=== PATIENT | female | born 1985 | race Caucasian/White ===

== ENCOUNTER 2020-02-25 12:49 | Emergency (ER) | payer BC ==
[~2020-02-25] VITALS: Ht 167.6 cm; Wt 87.4 kg
--- NOTE | 2020-02-25 13:15 | PHYS DOC ---
Past History Past Medical History: Fibromyalgia, Other Additional Past Medical Histor: HPV Past Surgical History: Cholecystectomy Alcohol Use: None General Adult EDM: Chief Complaint: VAGINAL BLEEDING HPI: HPI: Patient is a 4-year-old female who presents with vaginal bleeding that started today around noon. Patient states that her last menstrual period was 11/29 and she thinks she is about 12 weeks . Patient is G3, P2. Patient denies p ain and reports that she had some small spotting and small clots earlier today. Patient denies trauma. Patient has not seen OB yet has her first apartment appointment scheduled for tomorrow. Patient denies nausea, vomiting, diarrhea. Review of Systems: Review of Systems: Constitutional: Denies fever or chills Eyes: Denies change in visual acuity HENT: Denies nasal congestion or sore throat Respiratory: Denies cough or shortness of breath Cardiovascular: Denies chest pain or edema GI: Denies abdominal pain, nausea, vomiting, bloody stools or diarrhea : Denies dysuria Musculoskeletal: Denies back pain or joint pain Integument: Denies rash Neurologic: Denies headache, focal weakness or sensory changes Endocrine: Denies polyuria or polydipsia Lymphatic: Denies swollen glands Psychiatric: Denies depression or anxiety Allergies: Allergies: Allergies Coded Allergies Type Severity Reaction Last Updated Verified No Known Drug Allergies 02/25/20 No Physical Exam: PE: Constitutional: Well developed, well nourished, no acute distress, non-toxic appearance. [] HENT: Normocephalic, atraumatic, bilateral external ears normal, oropharynx moist, no oral exudates, nose normal. [] Eyes: PERRLA, EOMI, conjunctiva normal, no discharge. [] Neck: Normal range of motion, no tenderness, supple, no stridor. [] Cardiovascular:Heart rate regular rhythm, no murmur [] Lungs & Thorax: Bilateral breath sounds clear to auscultation [] Abdomen: Bowel sounds normal, soft, no tenderness, no masses, no pulsatile masses. [] Skin: Warm, dry, no erythema, no rash. [] Back: No tenderness, no CVA tenderness. [] Extremities: No tenderness, no cyanosis, no clubbing, ROM intact, no edema. [] Neurologic: Alert and oriented X 3, normal motor function, normal sensory function, no focal deficits noted. [] Psychologic: Affect normal, judgement normal, mood normal. [] Current Patient Data: Vital Signs: Vital Signs Date Time Temp Pulse Resp B/P (MAP) Pulse Ox O2 Delivery O2 Flow Rate FiO2 02/25/20 12:57 98.0 106 16 133/70 (91) 98 Room Air EKG: EKG: [] Radiology/Procedures: Radiology/Procedures: [] Heart Score: Risk Factors: Risk Factors: DM, Current or recent (<one month) smoker, HTN, HLP, family history of CAD, obesity. Risk Scores: Score 0 - 3: 2.5% MACE over next 6 weeks - Discharge Home Score 4 - 6: 20.3% MACE over next 6 weeks - Admit for Clinical Observation Score 7 - 10: 72.7% MACE over next 6 weeks - Early Invasive Strategies Course & Med Decision Making: Course & Med Decision Making Pertinent Labs and Imaging studies reviewed. (See chart for details) 34 year old female seen for vaginal spotting that started today without any cramping or pain. Will order beta HCG serum for baseline and US to check viability. Your ultrasound showed normal viable first trimester OB ultrasound. The estimated gestational age was 12 weeks and 2 days. With a estimated date of delivery of September 06, 2020. Labs within normal limits. Will have patient follow-up with PROCESSING SPECIALIST tomorrow for further assessment and evaluation. Patient denies abdominal pain. Patient is hemodynamically stable and able to ambulate on discharge. Dragon Disclaimer: Dragon Disclaimer: This electronic medical record was generated, in whole or in part, using a voice recognition dictation system. Departure Departure: Impression: Primary Impression: Vaginal bleeding before 22 weeks gestation Disposition: 01 DC HOME SELF CARE/HOMELESS Condition: GOOD Referrals: PCP,NO (PCP) Patient Instructions: Vaginal Bleeding During , [id number] Additional Instructions: You were in the emergency room today for vaginal bleeding. Your ultrasound showed normal viable first trimester OB ultrasound. The estimated gestational age was 12 weeks and 2 days. With a estimated date of delivery of September 06, 2020. Please follow-up with your PROCESSING SPECIALIST tomorrow for further assessment and evaluation. If you have worsening symptoms or concerns please return to the emergency room. EMERGENCY DEPARTMENT GENERAL DISCHARGE INSTRUCTIONS Thank you for coming to [facility] (ED) today and trusting us with you care. We trust that you had a positivie experience in our Emergency Department. If you wish to speak to the department management, you may call the director at [phone]. YOUR FOLLOW UP INSTRUCTIONS ARE FOLLOWS: 1. Do you have a private Doctor? If you do not have a private doctor, please ask for a resource list of physicians or clinics that may be able to assist you with follow up care. 2. The Emergency Physician has interpreted your x-rays. The X-Ray specialist will also review them. If there is a change in the findings, you will be notified in 48 hours when at all possible. 3. A lab test or culture has been done, your results will be reviewed and you will be notified if you need a change in treatment. ADDITIONAL INSTRUCTIONS AND INFORMATION: 1. Your care today has been supervised by a physician who is specially trained in emergency care. Many problems require more than one evaluation for a complete diagnosis and treatment. We recommend that you schedule your follow up appointment as recommended to ensure complete treatment of you illness or injury. If you are unable to obtain follow up care and continue to have a problem, or if your condition worsens, we recommend that you return to the ED. 2. We are not able to safely determine your condition over the phone nor are we able to give sound medical advice over the phone. For these safety reasons, if you call for medical advice we will ask you to come to the ED for further evaluation. 3. If you have any questions regarding these discharge instructions please call the ED at [phone]. SAFETY INFORMATION: In the interest of safety, wellness, and injury prevention; we encourage you to wear your sealbelt, if you smoke; quite smoking, and we encourage family to use a protective helmet for bicycling and other sporting events that present an increased risk for head injury. IF YOUR SYMPTOMS WORSEN OR NEW SYMPTOMS DEVELOP, OR YOU HAVE CONCERNS ABOUT YOUR CONDITION; OR IF YOUR CONDITION WORSENS WHILE YOU ARE WAITING FOR YOUR FOLLOW UP APPOINTMENT; EITHER CONTACT YOUR PRIMARY CARE DOCTOR, THE PHYSICIAN WHOSE NAME AND NUMBER YOU WERE GIVEN, OR RETURN TO THE ED IMMEDIATELY. CHANNING WOOD APRN Feb 25, 2020 13:15
[2020-02-25 13:25] LABS: BASO # 0.1 x10^3/uL (0.0-0.2); BASO % 1 % (0-3); EOS # 0.3 x10^3/uL (0.0-0.7); EOS % 2 % (0-3); HEMATOCRIT 39.3 % (36.0-47.0); LYMPH # 3.7 x10^3/uL (1.0-4.8); LYMPH % 34 % (24-48); MEAN CORPUSCULAR HEMOGLOBIN 28 pg (25-35); MEAN CORPUSCULAR HGB CONC 33 g/dL (31-37); MEAN CORPUSCULAR VOLUME 86 fL (79-100); MONO # 0.6 x10^3/uL (0.0-1.1); MONO % 6 % (0-9); NEUT # 6.4 x10^3uL (1.8-7.7); NEUT % 58 % (31-73); PLATELET COUNT 344 x10^3/uL (140-400); RED BLOOD COUNT 4.59 x10^6/uL (3.50-5.40); RED CELL DISTRIBUTION WIDTH 13.2 % (11.5-14.5); WHITE BLOOD COUNT 11.1 x10^3/uL (4.0-11.0)
[2020-02-25 13:35] LABS: CALCIUM 8.7 mg/dL (8.5-10.1); CREATININE 0.5 mg/dL (0.6-1.0); POTASSIUM 3.3 mmol/L (3.5-5.1)
[2020-02-25 13:41] LABS: ALBUMIN 3.2 g/dL (3.4-5.0); ALBUMIN/GLOBULIN RATIO 0.8 (1.0-1.7); TOTAL BILIRUBIN 0.1 mg/dL (0.2-1.0); TOTAL PROTEIN 7.2 g/dL (6.4-8.2)
[2020-02-25 13:43] LABS: BACTERIA,URINE 0 /HPF (0-FEW); BILIRUBIN,URINE NEG (NEG); CLARITY,URINE CLEAR; COLOR,URINE STRAW; GLUCOSE,URINE NEG (NEG); NITRITE,URINE NEG (NEG); SQUAMOUS EPITHELIAL CELL,UR OCC /LPF; UROBILINOGEN,URINE 0.2 mg/dL (0.2 mg/dL); WBC,URINE RARE /HPF (0-4)
--- NOTE | 2020-02-25 14:13 | RAD ---
EXAM: First Trimester OB Ultrasound INDICATION: Reason: spotting / Spl. Instructions: / History: TECHNIQUE: Real-time first trimester obstetrical ultrasound was performed with permanent freeze-frame documentation. COMPARISON: None. FINDINGS: GESTATIONAL SAC: Gestational sac shape and amniotic fluid volume within normal limits. POLE: Unremarkable. Yolk sac visualized. CROWN RUMP LENGTH: 5.7 cm HEART RATE: 160 bpm PLACENTA: Posterior MATERNAL UTERUS: Normal size, measuring 12.7 x 7.7 x 6.3 cm. A 0.9 x 0.8 x 0.7 cm hypoechoic nonvascu lar structure in the low uterine segment is present and could represent a small subchorionic hemorrha ge. Cervical length measures 3.2 cm. MATERNAL ADNEXA: Maternal adnexa were assessed but the ovaries are not well seen. AGE/DATES: Gestational Age by LMP: 12 weeks 3 days Gestational Age by US: 12 weeks 2 days EDC by LMP: September 05, 2020 EDC by US: September 06, 2020 IMPRESSION: Normal viable first trimester OB ultrasound. Estimated gestational age of 12 weeks 2 days and EDC of September 06, 2020. A small subchorionic hemorrhage may be present in the low uterine segment. Electronically signed by: Emir Eldridge MD (02/25/2020 2:10 PM) [id number]
[2020-02-25 14:24] VITALS: BP 99/59
== END 2020-02-25 14:43 | disposition home or self-care (01) ==
LOC: ER 12:49
DX: O46.91 Antepartum hemorrhage, unspecified, first trimester (principal); M79.7 Fibromyalgia; Z3A.12 12 weeks gestation of pregnancy
CPT/HCPCS: 36415; 76801; 80053; 81001; 81025; 84702; 85025; 86850; 86900; 86901; 99284